=== PATIENT | male | born 1950 | race Caucasian/White ===

== ENCOUNTER 2018-09-22 23:06 | Emergency (ER) | payer OTHER ==
--- NOTE | 2018-09-22 23:54 | EDPHY ---
General Time Seen by Provider: 09/22/18 23:48 Narrative: CHIEF COMPLAINT: Hernia HISTORY OF PRESENT ILLNESS: Patient presents with complaints of left inguinal hernia. It has been present for several months. He has a surgery scheduled on October 05 back home in [place]. He has had increasing pain over the past 24 hr. He is typically able to reduce the hernia by himself, or dose overnight. He was unable to do this today. Minimal pain at rest. It is moderate to severe when ambulatory. No numbness or tingling. No constipation. No fever. No diarrhea. No testicular pain. No other associated complaints or modifying factors. REVIEW OF SYSTEMS: 10 systems were reviewed and negative with the exception of the elements mentioned in the history of present illness. PCP: Located in [place] SPECIALISTS: Located in [place] PAST MEDICAL HISTORY: Hypertension, left inguinal hernia PAST SURGICAL HISTORY: Pending left inguinal hernia repair SOCIAL HISTORY: Nonsmoker. Lives independently with his spouse in [place]. Visiting his son FAMILY HISTORY: Noncontributory EXAMINATION: Vitals: Triage VS reviewed General Appearance: Alert, no distress Head: normocephalic, atraumatic Eyes: Pupils equal and round, no conjunctival pallor or injection ENT, Mouth: Mucous membranes moist Neck: Normal inspection, supple, non-tender Respiratory: Lungs are clear to auscultation Cardiovascular: Regular rate and rhythm Gastrointestinal: Abdomen is soft and nontender : Palpable left inguinal hernia is easily reducible. No scrotal edema or pain Back: non-tender, no bony abnormalities Neurological: A&O, nonfocal, normal gait Skin: Warm and dry, no rash Extremities: Nontender, no pedal edema Psychiatric: Mood and affect normal DIFFERENTIAL DIAGNOSES: Including but not limited to inguinal hernia, incarcerated inguinal hernia, strangulated inguinal hernia MDM: 11:45 p.m. Ongoing left inguinal hernia with surgery scheduled on October 05 and [place]. Patient has had difficulty reducing the hernia today. He has moderate to severe pain. No vomiting or constipation. No fever. I have ordered pain medication and will re-evaluate. 12:30 a.m. Laboratory studies unremarkable. Pain medication received. I have re- evaluated the patient I was able to reduce the left inguinal hernia without difficulty. 12:45 a.m. Patient re-evaluated. He has ambulated in the emergency department. His hernia did return but he was able to reduce it himself. We discussed discharge home with short course of pain medication. We discussed returning here if his hernia becomes too painful, he developed constipation or fever, or if he is unable to reduce it himself. He has an appointment with his surgeon upon return home to [place] next week. He is comfortable this plan and discharged home stable condition. SUPERVISION: This patient was independently evaluated without direct involvement of or examination by the attending physician. CONSULTATION: - History Smoking Status: Never smoked - Objective Vital Signs: Initial Vital Signs Temperature (C) 97.9 F 09/22/18 23:11 Heart Rate 106 H 09/22/18 23:11 Respiratory Rate 16 09/22/18 23:11 Blood Pressure 135/94 H 09/22/18 23:11 O2 Sat (%) 94 09/22/18 23:11 O2 Delivery Mode Room Air Allergies/Adverse Reactions: No Known Allergies Allergy (Unverified 09/22/18 23:10) Home Medications: Medication Instructions Recorded Lisinopril 09/22/18 Laboratory Results: Laboratory Results 09/23/18 00:05 09/23/18 00:05 Medications Given: Discontinued Medications Morphine Sulfate (Morphine) 6 mg IVP EDNOW ONE Stop: 09/22/18 23:56 Last Admin: 09/23/18 00:10 Dose: 6 mg Ondansetron HCl (Zofran) 4 mg IVP EDNOW ONE Stop: 09/22/18 23:56 Last Admin: 09/23/18 00:11 Dose: 4 mg Oxycodone/Acetaminophen (Percocet 5/325mg Prepack#4) 1 btl TAKEHOME EDNOW ONE Stop: 09/23/18 00:50 Last Admin: 09/23/18 01:04 Dose: 1 btl Departure - Departure Disposition: Home, Routine, Self-Care Clinical Impression: Left inguinal hernia Condition: Good Instructions: Oxycodone/Acetaminophen (By mouth), Inguinal Hernia Repair (DC) Additional Instructions: 1. Percocet pain medication as prescribed as needed 2. Return to this emergency department if you are unable to reduce the hernia as demonstrated to. 3. Contact your surgeon on Tuesday morning to discuss her visit here Referrals: Rachell Holt MD [Medical Doctor] - As per Instructions
[2018-09-22] MEDS ORDERED: ONDANSETRON 4 MG/2 ML VIAL IVP ONE (23:55)
[2018-09-23 00:12] LABS: PLATELET COUNT 265 10^3/uL (150-400)
[2018-09-23 00:21] LABS: INR 0.96 (0.83-1.16)
[2018-09-23 00:40] VITALS: BP 129/76
[2018-09-23] MEDS ORDERED: OXYCODONE/APAP 5/325MG PREPACK#4 BTL TAKEHOME ONE (00:49)
== END 2018-09-23 01:10 | disposition home or self-care (01) ==
DX: K40.90 Unilateral inguinal hernia, without obstruction or gangrene, not specified as recurrent (principal)
CPT/HCPCS: 96374; J2270; J2405